=== PATIENT | female | born 1985 | race Caucasian/White ===

== ENCOUNTER 2016-12-16 20:59 | Emergency (ER) | payer OTHER ==
[~2016-12-16] VITALS: Ht 175.3 cm; Wt 111.4 kg
[~2016-12-16 20:59] MED LIST: CYCL7.5T27 PO; NPR500T PO
[2016-12-16 21:04] VITALS: BP 132/83; PULSE 77; RESP 16; O2SAT 100
--- NOTE | 2016-12-16 22:13 | ED.REPORT ---
HPI-Chest Pain Under 40 Date of Service Dec 16, 2016 ED Provider: Dr. Whelan The pt is a 31 y/o female with no pertinent hx who presents to the ED complaining of waxing and waning, sharp left sided chest pain, onset yesterday. She denies numbness and tingling in her left arm. The pt reports lifting heavy objects yesterday. Her pain is not modified with anything specific, including with deep breathing or with movement of the left arm. She denies left arm pain, chest pain upon palpation, neck pain, headache, cough, diaphoresis, heartburn, nausea, vomiting, dysuria, constipation, diarrhea, abdominal pain and lower extremity edema. Nursing Notes Stated Complaint: PAIN IN UPPER LEFT ARM & CHEST Chief Complaint: General Complaint Nursing Notes Reviewed: Yes Allergies: Coded Allergies: No Known Allergies (Unverified , 10/08/15) Scheduled Famotidine (Pepcid) 20 Mg Tablet 20 MG PO BID Scheduled PRN Cyclobenzaprine (Cyclobenzaprine) 7.5 Mg Tablet 7.5 MG PO TID PRN PRN Spasm Ibuprofen (Ibuprofen) 600 Mg Tablet 600 MG PO QID PRN PRN For Pain Naproxen (Naproxen) 500 Mg Tab 500 MG PO BID PRN PRN For Pain General Time Seen by MD: 22:12 Chief Complaint Chest pain Hx Obtained From: Patient Arrived By: Walk-in Sudden in Onset?: Yes Onset Occurred: Yesterday Symptom Duration: Waxes and wanes Location: : Chest left Quality: Painful Radiation: : Does not radiate Migration/Movement: Reports: None Severity: Current: Moderate Severity: Maximum: Moderate Recent Healthcare: No recent doctor visit Similar Sx Previous: No Past Medical History Past Medical History Denies Past Surgical History Denies Smoking History Never Smoker Ambulatory Status Independent Review of Systems Denies: chest pain upon palpation Denies: heartburn Respiratory: Denies: Non-productive cough Cardiovascular: Reports: Chest pain, Denies: Edema GI: Denies: Abdominal pain, Constipation, Diarrhea, Nausea, Vomiting Musculoskeletal: Denies: Extremity pain (left arm), Neck pain Skin: Denies Diaphoresis Neurologic: Denies: Headache, Numbness (left arm), Weakness (left arm) Complete sys rev & neg: except as marked. Female: Denies: Dysuria Physical Exam Initial Vital Signs Vital Signs (First) Date Time Temp Pulse Resp B/P Pulse Ox O2 Delivery O2 Flow Rate FiO2 12/16/16 21:04 36.7 77 16 132/83 100 Room Air Initial VS: Reviewed Head / Eyes: Atraumatic, Normocephalic Neck: Supple, Non-tender, Full range of motion Abdomen / GI: Soft, Non-tender, No guarding, No rebound, No distention Extremities: Vascular intact, Neuro intact, No swelling, No tenderness Skin: Warm, Dry, No cyanosis Neurologic: Alert, Oriented, Nonfocal General/Constitutional: Awake, Alert, No acute distress, Well appearing, Cooperative Respiratory / Chest: Atraumatic, Breath sounds NL, Breath sounds = bilat, No respiratory distress, No rales, No rhonchi, No wheezing Cardiovascular: Heart rate NL, Regular rhythm, Heart sounds NL, No gallop, No murmurs, No rubs Interpretation & Diagnostics Lab Results Interpretation Result Diagram: 12/16/16 2255 12/16/16 2255 Test 12/16/16 22:55 White Blood Count 8.2th/mm3 (3.8-10.1) Red Blood Count 4.42mil/mm3 (3.90-5.20) Hemoglobin 12.3g/dL (12.0-15.6) Hematocrit 37.3% (35.0-46.0) Mean Corpuscular Volume 84.4fL (81-100) Mean Corpuscular Hemoglobin 27.8pg (27.0-35.0) Mean Corpuscular Hemoglobin Concent 33.0% (32.0-37.0) Red Cell Distribution Width 14.5% (12.3-15.4) Platelet Count 258bil/L (150-400) Neutrophils (%) (Auto) 59.2% (40-74) Lymphocytes (%) (Auto) 31.1% (14-46) Monocytes (%) (Auto) 7.9% (4-12) Eosinophils (%) (Auto) 1.3% (0-5) Basophils (%) (Auto) 0.4% (0-3) Prothrombin Time 10.5sec (8.1-12.5) Prothromb Time International Ratio 0.98ratio Activated Partial Thromboplast Time 26.4sec (22.8-33.0) D-Dimer < 0.50mg/L FEU (<0.50) Sodium Level 137mEq/L (134-144) Potassium Level 3.6mEq/L (3.5-5.2) Chloride Level 101mEq/L (97-108) Carbon Dioxide Level 23mmol/L (18-29) Blood Urea Nitrogen 15mg/dL (6-20) Creatinine 0.70mg/dL (0.57-1.00) Estimat Glomerular Filtration Rate 138mL/min (>59) Glucose Level 89mg/dL (60-99) Calcium Level 9.0mg/dL (8.5-10.1) Magnesium Level 2.0mg/dL (1.6-2.6) Total Bilirubin 0.3mg/dL (0.0-1.2) Aspartate Amino Transf (AST/SGOT) 15U/L (0-50) Alanine Aminotransferase (ALT/SGPT) 13U/L (0-32) Alkaline Phosphatase 69U/L (25-150) Troponin T < 0.010ug/L (0.0-0.011) Total Protein 7.0g/dL (6.4-8.4) Albumin 4.0g/dL (3.4-5.0) ECG Interpretation ECG Interpretation: Normal sinus rhythm. Rate 70. Time: 22:12 Interpreted by: ED physician X-Ray Chest Interpretation Chest Xray Interpretation: No acute findings View: Portable, AP & lat Interpretation / Wet Read by: Wet read ED physician Re-Eval/Medical Decision Med Decision/Clinical Course 31-year-old with a benign past history, presents with upper left chest and shoulder pain after doing some moderate lifting a day ago. Pain is optically pleuritic or elicitable, but is pretty clearly not cardiac. EKG is completely normal. Labs are negative. X-rays negative. Reassured that her risk for cardiac disease at this point is very low. Discharged home in stable condition. Naprosyn and Pepcid prescribed. Source of Hx: Old records Re-Evaluation/Progress : Time of Eval: 23:57 Re-Evaluation/Progress Note: Rechecked pt. Discussed lab results, imaging results, diagnosis and plan to discharge. Pt understands and agrees with the plan. F/U instruction and RTER warning given. All questions addressed. Counseled Regarding: Diagnosis, Lab results, Need for follow-up, When/why to return to ED Discharge & Departure Primary Impression: Shoulder pain Laterality: left Chronicity: acute Qualified Code: M25.512 - Pain in left shoulder Additional Impression: Chest pain, non-cardiac Disposition: Home Discharge Condition All VS Reviewed: Yes Condition: Stable Patient Instructions: Muscle Strain (ED) Additional Instructions: There is no evidence of serious cause for your chest pain and shoulder pain. Your cardiogram is completely normal. Your labs are normal. The story sounds more suggestive of muscular strain as the source. Continue ibuprofen 600 mg four times daily. Take Pepcid twice daily as long as you are taking ibuprofen. Follow-up with your doctor in the office. Return if any immediate issues. Referrals: Kaylie Palacios MD (PCP) Scribe Attestation Portions of this note were transcribed by Jose Soto. I,, personally performed the history, physical exam and medical decision-making;I reviewed and confirmed the accuracy of the information in the transcribed note. Signed by Jim Curry. 12/16/16 copies to: Kaylie Palacios MD, Christopher W MD Dec 16, 2016 22:13 Jose Soto Dec 16, 2016 22:19
[2016-12-16] MEDS ORDERED: Pantoprazole 40 mg ER24 Tablet PO ONE (22:20)
[2016-12-16 23:04] LABS: BASOPHILS % (AUTO) 0.4 % (0-3); EOSINOPHILS % (AUTO) 1.3 % (0-5); MONOCYTES % (AUTO) 7.9 % (4-12); Mean Corpuscular Hemoglobin 27.8 pg (27.0-35.0); Mean Corpuscular Volume 84.4 fL (81-100); NEUTROPHILS % (AUTO) 59.2 % (40-74); Platelet Count 258 bil/L (150-400)
[2016-12-16 23:05] VITALS: BP 101/57; PULSE 56; RESP 16; O2SAT 98
[2016-12-16 23:24] LABS: D-Dimer < 0.50 mg/L FEU (<0.50); INR 0.98 ratio
[2016-12-16 23:41] LABS: TROPONIN T < 0.010 ug/L (0.0-0.011)
[2016-12-16] MEDS ORDERED: FAMO20T PO (23:47)
[2016-12-16] MEDS ORDERED: IBUP-1827 PO (23:47)
[2016-12-17 00:37] VITALS: BP 114/72; PULSE 61; RESP 20; O2SAT 99
--- NOTE | 2016-12-17 08:33 | DRSVH ---
PROCEDURE: X-RAY CHEST, TWO VIEWS ([id number]) INDICATIONS: pain in left upper chest radiates to shoulder TECHNIQUE: 2 views of the chest were acquired. COMPARISON: None. FINDINGS: Surgical changes and devices: None. Lungs and pleura: No pleural effusions or pneumothorax. Lungs are clear. Mediastinum: Mediastinal contours are normal. Heart size is normal. Bones and chest wall: No suspicious bony abnormalities. Soft tissues appear unremarkable. IMPRESSION: No radiographic evidence of acute cardiopulmonary pathology. Dictated by: Nghia Ferreira M.D. on 12/17/2016 at 8:32 Approved by: Nghia Ferreira M.D. on 12/17/2016 at 8:32
== END 2016-12-17 00:38 | disposition home or self-care (01) ==
LOC: SED 20:59
DX: M25.512 Pain in left shoulder (principal); R07.89 Other chest pain; X50.0XXA Overexertion from strenuous movement or load, initial encounter; Y93.89 Activity, other specified; Y92.89 Other specified places as the place of occurrence of the external cause; Y99.8 Other external cause status
CPT/HCPCS: 36415; 71020; 80053; 83735; 84484; 85025; 85378; 85610; 85730; 93005; 96372; 99285; J1885